=== PATIENT | male | born 1995 | race Caucasian/White ===

== ENCOUNTER → 2020-06-19 11:57 | Outpatient (CLI) | payer SELFPAY | PROVIDERS: Referring Provider Internal Medicine; Visit Provider Internal Medicine | DX: Z23 Encounter for immunization (principal) | CPT/HCPCS: 90471; 90686 ==

== ENCOUNTER → 2020-08-11 13:14 | Outpatient (CLI) | payer OTHER, MEDICAID, SELFPAY ==
[2020-08-11] MEDS: COVID-19 VACC(MODERNA-1)/PF 100 MCG/0.5 ML VIAL IM (13:17)
== END ==
PROVIDERS: Visit Provider Internal Medicine
DX: Z23 Encounter for immunization (principal)
CPT/HCPCS: 0011A; 91301

== ENCOUNTER → 2020-09-08 15:11 | Outpatient (CLI) | payer OTHER, SELFPAY ==
[2020-09-08] MEDS: COVID-19 VACC #2, MRNA(MOD) 100 MCG/0.5 ML VIAL IM (15:15)
== END ==
PROVIDERS: Visit Provider Internal Medicine
DX: Z23 Encounter for immunization (principal)
CPT/HCPCS: 0012A; 91301

== ENCOUNTER → 2020-09-13 14:39 | Outpatient (CLI) | payer OTHER, SELFPAY ==
[2020-09-13 15:03] LABS: COVID19 -Nasal RAPID Negative (Negative)
== END ==
PROVIDERS: Referring Provider Physician Assistant; Visit Provider Physician Assistant
DX: Z20.822 Contact with and (suspected) exposure to COVID-19 (principal)
CPT/HCPCS: 87635

== ENCOUNTER 2021-04-04 16:20 | Emergency (ER) | payer OTHER, SELFPAY ==
[2021-04-04 16:33] VITALS: BP 144/82; PULSE 98; RESP 16; TEMP 36.6; O2SAT 97; BMI 32.5
[2021-04-04 18:03] VITALS: BP 133/80; PULSE 84; RESP 14; O2SAT 96
[2021-04-04 18:08] LABS: Alanine Aminotransferase 88 IU/L (<50)
[2021-04-04 18:41] LABS: Hepatitis B Surface Antigen NEGATIVE s/c (NEGATIVE)
[2021-04-04 18:59] LABS: HIV 1 & 2 Ab/Ag 4th Gen Combo NEGATIVE (NEGATIVE); Hep C Virus Ab w/Reflex Quant NEGATIVE s/c (NEGATIVE)
--- NOTE | 2021-04-04 19:41 | ED_ITS ---
HPI - General Adult <Kelvin Chapa PA-C - Last Filed: 04/04/21 20:11> General Chief complaint: Blood/Body fluid exposure Stated complaint: employee, needle stick Time Seen by Provider: 04/04/21 17:20 History of Present Illness HPI narrative: 26-year-old male with past medical history hypertension, GERD presents to the ED status post a needlestick injury sustained just prior to arrival today. Patient was administering a Prevnar vaccine to a 4-month-old baby, baby kicked patient's hand which caused the needle to scrape his left forearm, causing slight bleeding. According to patient, baby's mother is HIV negative, baby's HIV, HCV, HBV status unknown. Patient states that he does not wish for the baby to be tested for these conditions. Patient endorses being completely vaccinated for hepatitis-B. Last tetanus was last year. Related Data Home Medications Medication Instructions Recorded Confirmed meclizine 25 mg tablet 25 mg PO .prn tab 03/20/21 03/20/21 Previous Rx's Medication Instructions Recorded triamcinolone acetonide 0.025 % 1 applic TOPICAL BID PRN #80 g 11/16/20 topical cream sertraline 50 mg tablet (Zoloft) 50 mg PO DAILY #60 tab 01/22/21 Allergies Allergy/AdvReac Type Severity Reaction Status Date / Time codeine Allergy Verified 03/20/21 08:29 Review of Systems <Kelvin Chapa PA-C - Last Filed: 04/04/21 20:11> Constitutional Constitutional: Denies chills, Denies fatigue, Denies fever(s), Denies frequent falls, Denies lethargy and Denies weakness Eyes Eyes: Denies change in vision, Denies eye discharge, Denies irritation and Denies loss of vision ENT Ears, Nose, Mouth, and Throat: Denies change in voice, Denies dizziness, Denies neck pain, Denies sore throat and Denies throat swelling Cardiovascular Cardiovascular: Denies chest pain, Denies irregular heart rhythm, Denies lightheadedness, Denies palpitations, Denies dyspnea, Denies dyspnea on exertion and Denies orthopnea Respiratory Respiratory: Denies cough, Denies dyspnea, Denies dyspnea on exertion and Denies wheezing Gastrointestinal Gastrointestinal: Denies abdominal pain, Denies change in bowel habits, Denies diarrhea, Denies nausea and Denies vomiting Musculoskeletal Musculoskeletal: Denies neck pain and Denies numbness Integumentary/Breasts Skin/Breast: Denies pruritus, Denies erythema, Denies rash and Denies wounds Comments: abrasion on left forearm Neurologic Neurologic: Denies behavioral changes, Denies confusion, Denies dizziness, Denies frequent falls, Denies loss of vision, Denies numbness and Denies weakness Psychiatric Psychiatric: Denies anxiety, Denies behavioral changes, Denies confusion, Denies depression, Denies homicidal ideation and Denies suicidal ideation Endocrine Endocrine: Denies fatigue, Denies flushing and Denies palpitations Hematologic/Lymphatic Hematologic/Lymphatic: Denies easy bruising Allergic/Immunologic Allergic/Immunologic: Denies urticaria, Denies throat swelling and Denies wheezing Patient History <Kelvin Chapa PA-C - Last Filed: 04/04/21 20:11> Medical History Allergic rhinitis Allergies (~2010) Anxiety (~2009) Chronic back pain (~2015) Depression (~2017) Eczema (~2014) Elevated blood pressure reading Foot pain (~2010) Fractures (~2012) GERD (gastroesophageal reflux disease) (~2016) Headache Hearing loss Hemorrhoid (~2014) History of recurrent ear infection Hypertension (~2016) Kidney stones (~2014) Migraines Restless leg syndrome Shoulder pain (~2009) Tinnitus (~2010) Tinnitus Vertigo (~2010) Surgical History Anesthesia History of tonsillectomy (~2000) Family History Father Hypertension Hyperlipidemia Mental health problem Sister Mental health problem Grandfather Diabetes mellitus Hypertension Grandmother Diabetes mellitus Mental health problem Stroke Social History (System 06/09/20 @ 08:58 by Lady Jennie Rice) Smoking Status: Never smoker Smoking Status: Never smoker Substance Use Type: does not use Exam <Kelvin Chapa PA-C - Last Filed: 04/04/21 20:11> Initial Vital Signs Initial Vital Signs: Vital Signs Temperature 97.8 F 04/04/21 16:33 Pulse Rate 98 H 04/04/21 16:33 Respiratory Rate 16 04/04/21 16:33 Blood Pressure 144/82 H 04/04/21 16:33 Pulse Oximetry 97 04/04/21 16:33 Const General: cooperative [facility] Head: normocephalic and atraumatic Ears: external ears normal and TM's normal bilaterally Nose: external nose normal and No nasal discharge Face and sinus: sinuses nontender, face symmetric, no sinus tenderness and No dry mucous membranes Mouth: oral mucosae normal and moist mucous membranes Teeth and gingiva: dentition normal Throat: tonsils normal and uvula midline Eyes General: appearance normal, both eyes and all related structures Eyelids: eyelids normal Conjunctivae: conjunctivae normal Sclera: sclerae normal Pupils: PERRL EOM: EOM intact bilaterally Neck Neck: normal visual inspection, trachea midline, No lymphadenopathy, No midline deformity and No JVD Lymphatic: No lymphedema Chest Chest: normal inspection of the chest Resp Effort & Inspection: normal respiratory effort, able to speak in complete sentences, no respiratory distress and no use of accessory muscles Auscultation: clear to auscultation bilaterally, no rales, no rhonchi and no wheezes Cardio Rate: regular rate Rhythm: regular rhythm Heart Sounds: no click, no gallops, no murmurs and no rubs Pulses: normal peripheral pulses GI Inspection: non-distended Palpation: soft, no hepatosplenomegaly, No guarding, No pulsatile mass and No tender Auscultation: normal bowel sounds Back/Spine/Pelvis Back: No CVA tenderness Cervical Spine: cervical ROM normal and No pain with cervical ROM Thoracic/Lumbar Spine: thoracic and lumbar spine normal to inspection Skin General: No jaundice and No petechiae Other: Longitudinal abrasion on left forearm with no active bleeding. Neuro General: patient alert, patient oriented x3, gait normal and no focal motor deficits Speech: speech normal Extrem General: full ROM, no clubbing, cyanosis or edema, no pedal edema and no calf tenderness Psych Appearance: well kempt Mental Status: mental status grossly normal Attitude: cooperative Thought Content: normal and suicidality Judgment: judgment good <Brook Saldivar MD - Last Filed: 04/10/21 05:45> Initial Vital Signs Initial Vital Signs: Vital Signs Temperature 97.8 F 04/04/21 16:33 Pulse Rate 98 H 04/04/21 16:33 Respiratory Rate 16 04/04/21 16:33 Blood Pressure 144/82 H 04/04/21 16:33 Pulse Oximetry 97 04/04/21 16:33 Course <Kelvin Chapa PA-C - Last Filed: 04/04/21 20:11> Course Course Narrative: Patient declined post exposure prophylaxis for HIV. Patient also declined for the baby to be tested for HIV, hep B, HCV. Discharged home. Orders Ordered: ED Orders 04/04/21 17:38 Alanine Aminotransferase Stat HIV 1 & 2 Ab/Ag 4th Gen Combo Stat Hep C Virus Ab w/Reflex Quant Stat Hepatitis B Surface Antigen Stat Vital Signs Vital signs: Vital Signs - 8 hr 04/04/21 16:33 04/04/21 18:03 Temperature 97.8 F Pulse Rate 98 H 84 Respiratory Rate 16 14 Blood Pressure 144/82 H 133/80 Pulse Oximetry 97 96 <Brook Saldivar MD - Last Filed: 04/10/21 05:45> Orders Ordered: ED Orders 04/04/21 17:38 Alanine Aminotransferase Stat HIV 1 & 2 Ab/Ag 4th Gen Combo Stat Hep C Virus Ab w/Reflex Quant Stat Hepatitis B Surface Antigen Stat Vital Signs Vital signs: Vital Signs - 8 hr 04/04/21 16:33 04/04/21 18:03 Temperature 97.8 F Pulse Rate 98 H 84 Respiratory Rate 16 14 Blood Pressure 144/82 H 133/80 Pulse Oximetry 97 96 Medical Decision Making <Kelvin Chapa PA-C - Last Filed: 04/04/21 20:11> Medical Records Medical records reviewed: Yes I reviewed the patient's medical records. Lab Data Lab results reviewed: Yes I reviewed the patient's lab results. Lab results narrative: Labs WNL Labs: Lab Results 04/04/21 04/04/21 Range/Units 17:38 17:38 ALT 88 H (<50) IU/L Hep Bs Antigen Negative (NEGATIVE) s/c Hepatitis C Antibody Negative (NEGATIVE) s/c HIV 1&2 Ab/P24 Ag 4thGn Negative (NEGATIVE) MDM Narrative Medical decision making narrative: 26-year-old male with past medical history hypertension, GERD presents to the ED status post a needlestick injury sustained just prior to arrival today. Will order ALT, HCV antibody, hep B antibody, HIV antibody tests. Will offer post exposure prophylaxis for HIV. Will discharge home. <Brook Saldivar MD - Last Filed: 04/10/21 05:45> Lab Data Labs: Lab Results 04/04/21 04/04/21 Range/Units 17:38 17:38 ALT 88 H (<50) IU/L Hep Bs Antigen Negative (NEGATIVE) s/c Hepatitis C Antibody Negative (NEGATIVE) s/c HIV 1&2 Ab/P24 Ag 4thGn Negative (NEGATIVE) Discharge Plan Departure Patient Disposition: Home Clinical Impression: Needle stick injury Instructions: DI for Accidental Exposure to Body Fluids Activity Restrictions/Additional Instructions: You were seen in the ED today for a needlestick injury. We have ordered HIV antibody, HCV antibody, hep B antibody, ALT tests. Per our discussion on the risks and benefits of post exposure prophylaxis for HIV, you opted not to receive PEP at this time. Prescriptions: No Action triamcinolone acetonide 0.025 % cream 1 applic topical BID PRN (Reason: skin rash) Qty: 80 RF: 0 sertraline [Zoloft] 50 mg tablet 50 mg PO DAILY Qty: 60 RF: 0 meclizine 25 mg tablet 25 mg PO .prn RF: 0 Referrals: Shawn Alvarez MD [Primary Care Provider] - <Brook Saldivar MD - Last Filed: 04/10/21 05:45> Cosign ED Attending Cosignature Attestation: I was immediately available in the department for consultation throughout this patient's visit. I agree with documentation as above. Brook Saldivar MD
== END 2021-04-04 18:04 | disposition home or self-care (01) ==
PROVIDERS: Emergency Provider Student in an Organized Health Care Education/Training Program; PCP Family Medicine
DX: Z77.21 Contact with and (suspected) exposure to potentially hazardous body fluids (principal); W46.1XXA Contact with contaminated hypodermic needle, initial encounter; Y99.0 Civilian activity done for income or pay
CPT/HCPCS: 36415; 84460; 86803; 87340; 87389; 99281; 99283

== ENCOUNTER → 2021-05-01 11:58 | Outpatient (CLI) | payer OTHER, SELFPAY | PROVIDERS: PCP Family Medicine; Referring Provider Internal Medicine; Visit Provider Internal Medicine | DX: Z23 Encounter for immunization (principal) | CPT/HCPCS: 90471; 90686 ==

== ENCOUNTER → 2021-05-21 16:28 | Outpatient (CLI) | payer OTHER, SELFPAY ==
[2021-05-21 17:38] LABS: COVID19 -Nasal RAPID Negative (Negative)
== END ==
PROVIDERS: PCP Family Medicine; Referring Provider Nurse Practitioner Family; Visit Provider Nurse Practitioner Family
DX: Z20.822 Contact with and (suspected) exposure to COVID-19 (principal); J02.9 Acute pharyngitis, unspecified
CPT/HCPCS: 87635

== ENCOUNTER → 2021-06-25 16:39 | Outpatient (CLI) | payer OTHER, SELFPAY ==
[2021-06-25 17:03] LABS: COVID19 -Nasal RAPID Negative (Negative)
== END ==
PROVIDERS: PCP Family Medicine; Visit Provider Physician Assistant
DX: Z20.822 Contact with and (suspected) exposure to COVID-19 (principal)
CPT/HCPCS: 87635

== ENCOUNTER → 2021-07-25 10:40 | Outpatient (CLI) | payer OTHER, SELFPAY ==
[2021-07-25 13:28] LABS: COVID19 -Nasal RAPID Negative (Negative)
== END ==
PROVIDERS: PCP Family Medicine; Referring Provider Nurse Practitioner Family; Visit Provider Nurse Practitioner Family
DX: Z20.822 Contact with and (suspected) exposure to COVID-19 (principal); R05.9 Cough, unspecified
CPT/HCPCS: 87635

== ENCOUNTER → 2021-07-30 08:14 | Outpatient (CLI) | payer OTHER, SELFPAY ==
[2021-07-30 08:40] LABS: COVID19 -Nasal RAPID POSITIVE (Negative)
== END ==
PROVIDERS: PCP Family Medicine; Visit Provider Physician Assistant
DX: U07.1 COVID-19 (principal); Z20.822 Contact with and (suspected) exposure to COVID-19
CPT/HCPCS: 87635